=== PATIENT | female | born 1995 | race Caucasian/White ===

== ENCOUNTER 2023-12-05 10:08 | Emergency (ER) | payer OTHER ==
[2023-12-05 11:01] VITALS: BP 109/76; O2SAT 99
--- NOTE | 2023-12-05 11:13 | XRAY Report ---
PROCEDURE: Chest 1V INDICATIONS: covid, CP, difficulty breathing TECHNIQUE: One view of the chest was acquired. COMPARISON: None. FINDINGS: Surgical changes and devices: None. Lungs and pleura: No pleural effusions or pneumothorax. Lungs are clear. Mediastinum: Mediastinal contours appear normal. Heart size is normal. Bones and chest wall: No suspicious bony lesions. Overlying soft tissues appear unremarkable. IMPRESSION: No acute cardiopulmonary process. Reviewed by: Ad Daugherty MD on 12/05/2023 11:12 AM [facility] Approved by: Ad Daugherty MD on 12/05/2023 11:12 AM [facility] Station ID: [id number]
--- NOTE | 2023-12-05 11:30 | ED Physician Documentation ---
History of Present Illness - Stated complaint Stated Complaint: C+,SOA,LUNG PX - Chief complaint Chief Complaint: Resp - History obtained from History obtained from: Patient - Additonal information Additional information: The patient comes to the emergency department chief complaint of right anterior chest pressure that started overnight. She was diagnosed with COVID several days ago and states that she is just having a feeling like there is pressure in her lung and like is not quite expanding on the way. The patient states actually her course of COVID has been very mild. She has a cough mainly at night and has been a little bit tired and congested but otherwise has been feeling fairly well. She denies any GI symptoms. No fevers. She states she has otherwise healthy lungs. She is not a smoker or diabetic. No other complaints at this time. PD PAST MEDICAL HISTORY - Past Medical History Past Medical History: No - Past Surgical History Past Surgical History: Yes /[employer]: Hysterectomy, Other - Present Medications Home Medications: Ambulatory Orders Medication Instructions Recorded Confirmed Semaglutide [Ozempic] 20 unit SQ .WEEKLY 12/05/23 12/05/23 Sertraline [Zoloft] 50 mg PO DAILY 12/05/23 12/05/23 - Allergies Allergies/Adverse Reactions: Allergies Allergy/AdvReac Type Severity Reaction Status Date / Time sulfamethoxazole Allergy Anaphylaxis Verified 12/05/23 10:49 [From ] trimethoprim [From ] Allergy Anaphylaxis Verified 12/05/23 10:49 - Social History Does the pt smoke?: No Smoking Status: Never smoker Does the pt drink ETOH?: No Does the pt have substance abuse?: No - Immunizations Immunizations are current?: Yes PD ED PE NORMAL - Vitals Vital signs reviewed: Yes - General General: Alert and oriented X 3, No acute distress, Well developed/nourished - HEENT HEENT: Atraumatic, PERRL, EOMI, Moist mucous membranes - Neck Neck: Supple, no meningeal sign - Cardiac Cardiac: RRR, No murmur - Respiratory Respiratory: No respiratory distress, Clear bilaterally - Abdomen Abdomen: Soft, Non tender, Non distended - Derm Derm: Normal color, Warm and dry, No rash - Extremities Extremities: No deformity, No edema - Neuro Neuro: Alert and oriented X 3 - Psych Psych: Normal mood, Normal affect Results - Vitals Vitals: Vital Signs - 24 hr 12/05/23 10:44 Temperature 36.0 C L Heart Rate 77 Respiratory 15 Rate Blood Pressure 109/76 O2 Saturation 99 - Rads (name of study) Chest x-ray Relevant Findings:: Final report received, See rad report (Negative) PD Medical Decision Making - ED course Complexity details: reviewed results, re-evaluated patient, considered differential, d/w patient ED course: The patient was very well-appearing in the emergency department and her exam was normal. Her chest x-ray is reassuring and I discussed this with the patient. She states she already has cough medicine at home and does not really feel like she needs anything else from the emergency department. We have discussed home management of symptoms as well as usual indications for return. Departure - Departure Disposition: 01 Home, Self Care Clinical Impression: COVID-19, Acute chest wall pain Condition: Stable Instructions: ED Viral Syndrome Comments: Your pulse oximetry, indicating your blood oxygen level, looks great in the emergency department, and your lung exam is normal. Your chest x-ray is clear and shows a fully inflated right lung with no pneumonia. Is not clear exactly what is causing your discomfort in the right chest but probably, this is due to some spasm in your chest wall. You may continue to take your home medications as needed. Be sure to get plenty of rest and fluids. Follow-up with your primary doctor as needed.
== END 2023-12-05 11:35 | disposition home or self-care (01) ==
LOC: ED 10:08
DX: U07.1 COVID-19 (principal); R07.89 Other chest pain; Z79.899 Other long term (current) drug therapy; Z79.84 Long term (current) use of oral hypoglycemic drugs
CPT/HCPCS: 99283